=== PATIENT | female | born 1945 | race Caucasian/White ===

== ENCOUNTER 2021-08-27 13:33 | Emergency (ER) | payer OTHER ==
[~2021-08-27] VITALS: Ht 152.4 cm; Wt 72.6 kg
[2021-08-27] MEDS ORDERED: LEVO-T75 MCG PO (14:05)
[2021-08-27 15:15] VITALS: BP 143/92
== END 2021-08-27 15:15 | disposition home or self-care (01) ==
LOC: ER 13:33
DX: S09.90XA Unspecified injury of head, initial encounter (principal); Z79.899 Other long term (current) drug therapy; W00.0XXA Fall on same level due to ice and snow, initial encounter; Y93.89 Activity, other specified; Y92.89 Other specified places as the place of occurrence of the external cause; Y99.8 Other external cause status